=== PATIENT | female | born 1985 | race Caucasian/White ===

== ENCOUNTER 2016-08-23 16:33 | Emergency (ER) | payer MEDICAID ==
[~2016-08-23] VITALS: Ht 162.6 cm; Wt 85.0 kg
[~2016-08-23 16:33] MED LIST: BACT800T5 PO; CEPH500C3 PO; PROM25TA5 PO
[2016-08-23 16:35] VITALS: BP 124/75; PULSE 82; RESP 16; TEMP 98.4; O2SAT 98
[2016-08-23] MEDS ORDERED: SODIUM CHLOR 0.9% 1000 ML INJ 1,000 ML IV SCH (21:28)
--- NOTE | 2016-08-23 21:29 | PD ---
HPI Chief Complaint: Abdominal Pain Time Seen by Provider: 21:29 Travel History International Travel<30 days: No Contact w/Intl Traveler<30days: No Traveled to known affect area: No History of Present Illness HPI 30 year old female with no significant medical history presents to the ED for evaluation of abdominal cramping, diarrhea, nausea, and vomiting intermittently occurring over the last month. Pt has had this in the past and has not followed up with with GI as advised. She denies hematemesis or hematochezia. No fever or chills. No urinary symptoms. No chance of . No vaginal discharge or bleeding. No other symptoms to report. PFSH Past Medical History Medical History: Denies Significant Hx ?: Not LMP: 07/2016 Social History Alcohol Use: No Tobacco Use: No Substance Use: No Allergies-Medications (Allergen,Severity, Reaction): Coded Allergies: Seafood (Verified Allergy, Severe, Anaphylaxis, 08/23/16) Reported Meds & Prescriptions Reported Meds & Active Scripts Active Zofran Odt (Ondansetron Odt) 4 Mg Tab 4 Mg SL Q6HR PRN Omeprazole 40 Mg Cap 40 Mg PO DAILY Phenergan 25 mg (Promethazine HCl) 25 Mg Tab 25 Mg PO Q6H PRN Bactrim DS (Sulfamethoxazole-Trimethoprim DS) 1 Tab Tab 1 Tab PO BID 10 Days Keflex (Cephalexin Monohydrate) 500 Mg Cap 500 Mg PO Q6HR 10 Days Review of Systems Except as stated in HPI: all other systems reviewed are Neg Physical Exam Narrative GENERAL: Well-nourished female patient, ambulatory no distress SKIN: Warm and dry. HEAD: Atraumatic. Normocephalic. EYES: Pupils equal and round. No scleral icterus. No injection or drainage. ENT: No nasal bleeding or discharge. Mucous membranes pink and moist. NECK: Trachea midline. No JVD. CARDIOVASCULAR: Regular rate and rhythm. No murmur appreciated. RESPIRATORY: No accessory muscle use. Clear to auscultation. Breath sounds equal bilaterally. GASTROINTESTINAL: Abdomen soft, non-tender, nondistended. Hepatic and splenic margins not palpable. MUSCULOSKELETAL: No obvious deformities. No clubbing. No cyanosis. No edema. NEUROLOGICAL: Awake and alert. No obvious cranial nerve deficits. Motor grossly within normal limits. Normal speech. PSYCHIATRIC: Appropriate mood and affect; insight and judgment normal. Data Data Last Documented VS Vital Signs Date Time Temp Pulse Resp B/P Pulse Ox O2 Delivery O2 Flow Rate FiO2 08/23/16 21:40 18 100 Room Air 08/23/16 21:33 71 106/62 08/23/16 16:35 98.4 Orders Complete Blood Count With Diff (08/23/16 21:28) Comprehensive Metabolic Panel (08/23/16 21:28) Lipase (08/23/16 21:28) Urinalysis - C+S If Indicated (08/23/16 21:28) Iv Access Insert/Monitor (08/23/16 21:28) Ecg Monitoring (08/23/16 21:28) Oximetry (08/23/16 21:28) Ondansetron Inj (Zofran Inj) (08/23/16 21:30) Pantoprazole Inj (Protonix Inj) (08/23/16 21:30) Sodium Chlor 0.9% 1000 Ml Inj (Ns 1000 M (08/23/16 21:28) Sodium Chloride 0.9% Flush (Ns Flush) (08/23/16 21:30) Ed Urine Pregnancytest Poc (08/23/16 21:28) Potassium Chloride (Kcl) (08/23/16 23:15) Labs Laboratory Tests Test 08/23/16 08/23/16 21:45 22:01 Urine Color YELLOW Urine Turbidity CLEAR Urine pH 6.5 Urine Specific [place] 1.025 Urine Protein TRACE mg/dL Urine Glucose (UA) NEG mg/dL Urine Ketones NEG mg/dL Urine Occult Blood NEG Urine Nitrite NEG Urine Bilirubin NEG Urine Urobilinogen LESS THAN 2.0 MG/DL Urine Leukocyte Esterase NEG Urine RBC LESS THAN 1 /hpf Urine WBC 2 /hpf Urine Squamous Epithelial 2 /hpf Cells Urine Bacteria RARE /hpf Urine Hyaline Casts 2 /lpf Urine Mucus FEW /lpf Microscopic Urinalysis Comment CULT NOT INDICATED White Blood Count 12.3 TH/MM3 Red Blood Count 4.68 MIL/MM3 Hemoglobin 13.0 GM/DL Hematocrit 38.8 % Mean Corpuscular Volume 82.9 FL Mean Corpuscular Hemoglobin 27.7 PG Mean Corpuscular Hemoglobin 33.4 % Concent Red Cell Distribution Width 12.7 % Platelet Count 273 TH/MM3 Mean Platelet Volume 9.4 FL Neutrophils (%) (Auto) 65.3 % Lymphocytes (%) (Auto) 25.9 % Monocytes (%) (Auto) 6.9 % Eosinophils (%) (Auto) 1.3 % Basophils (%) (Auto) 0.6 % Neutrophils # (Auto) 8.0 TH/MM3 Lymphocytes # (Auto) 3.2 TH/MM3 Monocytes # (Auto) 0.9 TH/MM3 Eosinophils # (Auto) 0.2 TH/MM3 Basophils # (Auto) 0.1 TH/MM3 CBC Comment DIFF FINAL Differential Comment Sodium Level 138 MEQ/L Potassium Level 3.3 MEQ/L Chloride Level 104 MEQ/L Carbon Dioxide Level 26.1 MEQ/L Anion Gap 8 MEQ/L Blood Urea Nitrogen 11 MG/DL Creatinine 0.76 MG/DL Estimat Glomerular Filtration 90 ML/MIN Rate Random Glucose 83 MG/DL Calcium Level 9.0 MG/DL Total Bilirubin 0.2 MG/DL Aspartate Amino Transf 16 U/L (AST/SGOT) Alanine Aminotransferase 28 U/L (ALT/SGPT) Alkaline Phosphatase 105 U/L Total Protein 8.5 GM/DL Albumin 4.2 GM/DL Lipase 130 U/L [facility] Medical Decision Making Medical Screen Exam Complete: Yes Emergency Medical Condition: Yes Medical Record Reviewed: Yes Differential Diagnosis Gastritis versus gastroenteritis versus IBD versus colitis Narrative Course 30 year-old female presents to emergency department for evaluation. She appears without distress. Abdominal exam is benign. CBC is without acute concern. BMP is with mild hypokalemia 3.3. This is repleted in the emergency department. Patient is given IV fluids and Zofran. She is encouraged follow- up with gastroenterology and primary care. She agrees to return immediately with any acute worsening symptoms. 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 Primary Care Physician Patient Instructions: Diet for Stomach Ulcers and Gastritis (ED), General Instructions Departure Forms: Tests/Procedures, Work Release Enter return to work date: Aug 25, 2016 Additional Instructions: [place] diet Advance diet as tolerated Follow up with primary care provider Seek gastroenterology evaluation Return to ED with acute worsening of symptoms Med/Other Pt SpecificInfo: Prescription(s) given Scripts Ondansetron Odt (Zofran Odt)4 Mg Tab4 Mg SL Q6HR PRN (Nausea/Vomiting) #10 TAB Ref 0 Prov:Park Bucio 08/23/16 Omeprazole 40 Mg Cap40 Mg PO DAILY #14 CAP Ref 0 Prov:Park Bucio 08/23/16 Disposition: 01 DISCHARGE HOME Condition: Stable Park Bucio Aug 23, 2016 21:29
[2016-08-23] MEDS ORDERED: PANTOPRAZOLE SODIUM 40 MG VIAL IVP ONE (21:30)
[2016-08-23] MEDS ORDERED: SODIUM CHLORIDE 0.9% FLUSH 5 ML FLUSH IVF PRN (21:30)
[2016-08-23] MEDS ORDERED: ONDANSETRON HCL 4 MG/2 ML VIAL IVP ONE (21:30)
[2016-08-23 21:33] VITALS: BP 106/62; PULSE 71; RESP 18; O2SAT 100
[2016-08-23 21:40] VITALS: RESP 18; O2SAT 100
[2016-08-23 22:22] LABS: BASOPHIL # 0.1 TH/MM3 (0-0.2); BASOPHIL % 0.6 % (0.0-2.0); EOSINOPHIL # 0.2 TH/MM3 (0-0.4); EOSINOPHIL % 1.3 % (0.0-4.0); HEMATOCRIT 38.8 % (35.0-46.0); HEMO FLAGS DIFF FINAL; LYMPH % 25.9 % (9.0-44.0); LYMPHOCYTE # 3.2 TH/MM3 (1.0-4.8); MEAN CELL VOLUME 82.9 FL (80.0-100.0); MEAN CORPUSCULAR HEMOGLOBIN 27.7 PG (27.0-34.0); MEAN CORPUSCULAR HGB CONC 33.4 % (32.0-36.0); MONO % 6.9 % (0.0-8.0); NEUT % 65.3 % (16.0-70.0); PLATELET COUNT 273 TH/MM3 (150-450); RED BLOOD COUNT 4.68 MIL/MM3 (4.00-5.30); RED CELL DISTRIBUTION WIDTH 12.7 % (11.6-17.2); WHITE BLOOD COUNT 12.3 TH/MM3 (4.0-11.0)
[2016-08-23 22:24] LABS: BACTERIA, URINE RARE /hpf; BLOOD, URINE NEG (NEG); COMMENT (UR) CULT NOT INDICATED; CULTURE IF INDICATED CULT NOT INDICATED; GLUCOSE,URINE NEG (NEG); HYALINE CAST, URINE 2 /lpf (RARE); KETONE, URINE NEG (NEG); MUCUS URINE FEW /lpf (OCC); NITRITE,URINE NEG (NEG); PH, URINE 6.5 (5.0-8.5); SQUAMOUS EPITHELIAL CELL URINE 2 /hpf (0-5); URINE COLOR YELLOW (YELLW/STRAW)
[2016-08-23 22:46] LABS: ANION GAP 8 MEQ/L (5-15); AST (GOT) 16 U/L (15-37); BICARBONATE 26.1 MEQ/L (21.0-32.0); BLOOD UREA NITROGEN 11 MG/DL (7-18); CHLORIDE 104 MEQ/L (98-107); GLOMERULAR FILTRATION RATE 90 ML/MIN (>89); POTASSIUM 3.3 MEQ/L (3.5-5.1); SODIUM (NA) 138 MEQ/L (136-145)
[2016-08-23 22:49] LABS: ALKALINE PHOSPHATASE 105 U/L (45-117); ALT (GPT) 28 U/L (10-53); TOTAL BILIRUBIN ADULT 0.2 MG/DL (0.2-1.0)
[2016-08-23] MEDS ORDERED: OMEP40CA2 PO (23:05)
[2016-08-23] MEDS ORDERED: ZOFR4TAB3 SL (23:05)
[2016-08-23] MEDS ORDERED: POTASSIUM CHLORIDE 10 MEQ CONTROLLED RELEASE TAB PO ONE (23:15)
[2016-08-24] MEDS ORDERED: NOREPINEPHRINE 4 MG/4 ML AMP ONE (11:18)
== END 2016-08-23 23:18 | disposition home or self-care (01) ==
LOC: NEPC 16:33
DX: K52.9 Noninfective gastroenteritis and colitis, unspecified (principal)
CPT/HCPCS: 80053; 81001; 83690; 84703; 85025; 96361; 96374; 96375; 99284; C9113; J2405; J7030

== ENCOUNTER 2016-08-31 13:16 | Emergency (ER) | payer MEDICAID ==
[~2016-08-31] VITALS: Ht 162.6 cm; Wt 85.0 kg
[~2016-08-31 13:16] MED LIST changes: +OMEP40CA2 PO; +ZOFR4TAB3 SL
[2016-08-31 13:18] VITALS: BP 128/58; PULSE 78; RESP 20; TEMP 97.7; O2SAT 99
--- NOTE | 2016-08-31 13:35 | PD ---
HPI Chief Complaint: Back/ Neck Pain or Injury Time Seen by Provider: 13:35 Travel History International Travel<30 days: No Contact w/Intl Traveler<30days: No Traveled to known affect area: No History of Present Illness HPI 30-year-old male presents to the emergency Department with complaint of left lower back pain 2 days. She says she "threw out her back" from moving concrete the other day. Has had similar back pain in the past. She has tried warm soaks in a bath, icy hot patches, and ibuprofen with some relief. Went to work today and she was in too much pain to work. Denies encopresis, incontinence, saddle anesthesias. Denies IV drug use, cancer. Denies fever, chills, nausea, vomiting. Denies paresthesias, loss of sensation, decreased range of motion, decreased strength to bilateral lower extremities. Pain is aggravated with walking, standing up straight, palpation, and movement. Allergies to seafood. Denies significant past medical history. No other modifying factors or associated signs and symptoms. PFSH Past Medical History Diminished Hearing: No ?: Not : 3 Para: 3 Social History Alcohol Use: Yes (OCC) Tobacco Use: Yes (OCC) Substance Use: No Allergies-Medications (Allergen,Severity, Reaction): Coded Allergies: Seafood (Verified Allergy, Severe, Anaphylaxis, 08/23/16) Reported Meds & Prescriptions Reported Meds & Active Scripts Active Ibuprofen 800 Mg Tab 800 Mg PO Q6HR PRN Robaxin (Methocarbamol) 500 Mg Tab 500 Mg PO QID PRN Zofran Odt (Ondansetron Odt) 4 Mg Tab 4 Mg SL Q6HR PRN Omeprazole 40 Mg Cap 40 Mg PO DAILY Phenergan 25 mg (Promethazine HCl) 25 Mg Tab 25 Mg PO Q6H PRN Bactrim DS (Sulfamethoxazole-Trimethoprim DS) 1 Tab Tab 1 Tab PO BID 10 Days Keflex (Cephalexin Monohydrate) 500 Mg Cap 500 Mg PO Q6HR 10 Days Review of Systems Except as stated in HPI: all other systems reviewed are Neg Physical Exam Narrative GENERAL: Well-nourished, well-developed female patient, in no acute distress SKIN: Warm and dry. HEAD: Atraumatic. Normocephalic. EYES: Pupils equal and round. No scleral icterus. No injection or drainage. ENT: Mucosa pink and moist. Airway patent. NECK: Trachea midline. CARDIOVASCULAR: Regular rate. RESPIRATORY: No accessory muscle use. GASTROINTESTINAL: Abdomen soft, non-tender, nondistended. Positive bowel sounds. No hepato-splenomegaly, or palpable masses. No guarding. MUSCULOSKELETAL: Bilateral lower extremities supple and non-tense with 2+ pedal pulses and sensory intact; with full range of motion and 5/5 strength. 2 + DTRs bilaterally. Active dorsiflexion and extension of bilateral feet. Left straight leg raise is positive for low back pain. Right straight leg raise test negative for low back pain. Ambulatory with a guarded gait in the room. Sitting up in bed at 90. No obvious deformities. No clubbing. No cyanosis. No edema. BACK: No midline point tenderness on palpation of the lumbar, thoracic spine. Tenderness on palpation of left lumbar paraspinal area. No obvious deformities. NEUROLOGICAL: Awake and alert. Oriented 3. No obvious cranial nerve deficits. Motor grossly within normal limits. Normal speech. Moves all extremities. 5/5 strength to all extremities. Sensory intact. PSYCHIATRIC: Appropriate mood and affect; insight and judgment normal. Data Data Last Documented VS Vital Signs Date Time Temp Pulse Resp B/P Pulse Ox O2 Delivery O2 Flow Rate FiO2 08/31/16 13:18 97.7 78 20 128/58 99 Room Air Orders Ketorolac Inj (Toradol Inj) (08/31/16 13:45) Orphenadrine Inj (Norflex Inj) (08/31/16 13:45) MDM Medical Decision Making Medical Screen Exam Complete: Yes Emergency Medical Condition: Yes Medical Record Reviewed: Yes Differential Diagnosis Low back strain, acute low back pain, muscle spasm Narrative Course 30-year-old female physical exam and history of present illness consistent with left-sided low back strain and acute low back pain. Denies encopresis, incontinence, saddle anesthesias. Denies IV drug use, cancer. Denies fever, chills, nausea, vomiting. Patient ambulatory in the room with a guarded gait. No midline Point tenderness on palpation of the lumbar or thoracic spine. Toradol and Norflex administered in the ER. Ibuprofen and Robaxin prescribed for home. Patient verbalizes understanding and agreement with treatment plan. Patient is medically cleared and stable for discharge. Discussed reasons to return to the emergency department. Instructed patient to follow up with primary care provider. Patient agrees with treatment plan. The patients vital signs are stable and the patient is stable for outpatient follow-up and treatment. Patient discharged home, stable and in no acute distress. Diagnosis Primary Impression: Low back strain Qualified Code: S39.012A - Low back strain, initial encounter Additional Impression: Acute low back pain Qualified Code: M54.5 - Acute left-sided low back pain without sciatica Referrals: Primary Care Physician Patient Instructions: Acute Low Back Pain (ED), General Instructions, Low Back Strain (ED) Departure Forms: Tests/Procedures, Work Release Enter return to work date: Sep 03, 2016 Special Instructions: May return to work earlier at patient's discretion Additional Instructions: Tylenol or ibuprofen as directed and as needed for pain Robaxin as prescribed and as needed for muscle spasms Heating pad and/or ice to affected area to reduce pain Avoid aggravating activities; increase activity as tolerated Follow-up with primary care provider Return to emergency department immediately with worsening of symptoms Med/Other Pt SpecificInfo: Prescription(s) given Scripts Ibuprofen 800 Mg [id number] Mg PO Q6HR PRN (PAIN) #30 TAB Ref 0 Prov:Katrin Aguirre 08/31/16 Methocarbamol (Robaxin)500 Mg [id number] Mg PO QID PRN (MUSCLE SPASM) #30 TAB Ref 0 Prov:Katrin Aguirre 08/31/16 Disposition: 01 DISCHARGE HOME Condition: Stable Katrin Aguirre Aug 31, 2016 13:35
[2016-08-31] MEDS ORDERED: ROBA500T PO (13:38)
[2016-08-31] MEDS ORDERED: IBUP800T23 PO (13:38)
[2016-08-31] MEDS ORDERED: ORPHENADRINE INJ 60 MG/2 ML AMP IM ONE (13:45)
[2016-08-31] MEDS ORDERED: KETOROLAC TROMETHAMINE 60 MG/2 ML (IM) VIAL IM ONE (13:45)
== END 2016-08-31 14:04 | disposition home or self-care (01) ==
LOC: NEPB 13:16
DX: S39.012A Strain of muscle, fascia and tendon of lower back, initial encounter (principal); M54.5 Low back pain; Z72.0 Tobacco use; X50.0XXA Overexertion from strenuous movement or load, initial encounter
CPT/HCPCS: 96372; 99283; J1885; J2360

== ENCOUNTER 2016-09-05 18:45 | Emergency (ER) | payer MEDICAID ==
[~2016-09-05] VITALS: Ht 162.6 cm; Wt 86.0 kg
[~2016-09-05 18:45] MED LIST changes: -BACT800T5 PO; -CEPH500C3 PO; +IBUP800T23 PO; -PROM25TA5 PO; +ROBA500T PO
[2016-09-05 18:46] VITALS: BP 124/61; PULSE 80; RESP 16; TEMP 97.5; O2SAT 98
--- NOTE | 2016-09-05 21:19 | PD ---
HPI Chief Complaint: Back/ Neck Pain or Injury Time Seen by Provider: 21:16 Travel History International Travel<30 days: No Contact w/Intl Traveler<30days: No Traveled to known affect area: No History of Present Illness HPI 30-year-old white female presents to emergency Department with complaints of left lower back pain. She states that she had an injury lifting and moving concrete 4 days ago. She states that it seemed to start to improve but she then reinjured her back today lifting her child out of his car seat. She states the pain is mild to moderate. Worse with bending and movement. Some relief from remaining still. No numbness, tingling or weakness. PFSH Past Medical History Narrative Medical Lumbar strain Diminished Hearing: No Tetanus Vaccination: < 5 Years ?: Not : 3 Para: 3 Past Surgical History Surgical History: No Previous Surgery Social History Alcohol Use: Yes (OCC) Tobacco Use: Yes (OCC) Substance Use: No Allergies-Medications (Allergen,Severity, Reaction): Coded Allergies: Seafood (Verified Allergy, Severe, Anaphylaxis, 09/05/16) Reported Meds & Prescriptions Reported Meds & Active Scripts Active Ibuprofen 800 Mg Tab 800 Mg PO Q6HR PRN Robaxin (Methocarbamol) 500 Mg Tab 500 Mg PO QID PRN Review of Systems Except as stated in HPI: all other systems reviewed are Neg Physical Exam Narrative GENERAL: Well-developed, well-nourished in no acute distress. Nontoxic appearing. HEAD: Normocephalic, atraumatic. EYES: Pupils equal round and reactive. Extraocular motions intact. No scleral icterus. No injection or drainage. ENT: TMs clear without erythema. The external auditory canals clear. Nose: clear . Posterior pharynx is pink and moist. No tonsillar edema or exudate. Uvula midline. Airway patent. NECK: Trachea midline.Supple, nontender, moves head freely. No central bony tenderness or spasm. CARDIOVASCULAR: Regular rate and rhythm without murmurs, gallops, or rubs. RESPIRATORY: Clear to auscultation. Breath sounds equal bilaterally. No wheezes , rales, or rhonchi. GASTROINTESTINAL: Abdomen soft, non-tender, nondistended. No hepato-splenomegaly , or palpable masses. No guarding. EXTREMITIES: No clubbing, cyanosis, or edema. No joint tenderness, effusion, or edema noted. BACK: No central bony tenderness to palpation of dorsal lumbar spine. Without deformity or crepitance. No flank tenderness. Patient has left paralumbar tenderness with mild spasm. Sits up in bed at 90. No saddle anesthesia. Data Data Last Documented VS Vital Signs Date Time Temp Pulse Resp B/P Pulse Ox O2 Delivery O2 Flow Rate FiO2 09/05/16 18:46 97.5 80 16 124/61 98 Room Air MDM Medical Decision Making Medical Screen Exam Complete: Yes Emergency Medical Condition: Yes Medical Record Reviewed: Yes Differential Diagnosis MDM: High Differential diagnoses: Fracture, sprain, strain, HNP, nerve or vascular injury , epidural abscess, pilonidal cyst Narrative Course pATIENT GIVEN tORADOL 60 AND nORFLEX 60 MG im. tHIS ACUTE EXACERBATION OF BACK STRAIN Diagnosis Primary Impression: acute exacerbation of back strain Patient Instructions: General Instructions Departure Forms: Tests/Procedures, Work Release Special Instructions: No work 3 days. Additional Instructions: Rest. Ice for the next 3 days followed by heat . Continue home medications.. Follow-up with a primary care doctor in one week. Return to the ER for emergencies. Med/Other Pt SpecificInfo: No Change to Meds Disposition: 01 DISCHARGE HOME Condition: Stable Ameya Castillo Sep 05, 2016 21:19
[2016-09-05] MEDS ORDERED: KETOROLAC TROMETHAMINE 60 MG/2 ML (IM) VIAL IM ONE (21:30)
[2016-09-05] MEDS ORDERED: ORPHENADRINE INJ 60 MG/2 ML AMP IM ONE (21:30)
== END 2016-09-05 22:02 | disposition home or self-care (01) ==
LOC: NEPB 18:45
DX: S39.012A Strain of muscle, fascia and tendon of lower back, initial encounter (principal); X50.0XXA Overexertion from strenuous movement or load, initial encounter; Y93.F2 Activity, caregiving, lifting; Y92.9 Unspecified place or not applicable; Z72.0 Tobacco use
CPT/HCPCS: 96372; 99282; J1885; J2360

== ENCOUNTER 2016-10-15 12:14 | Emergency (ER) | payer MEDICAID ==
[~2016-10-15] VITALS: Ht 162.6 cm; Wt 86.4 kg
[~2016-10-15 12:14] MED LIST changes: -OMEP40CA2 PO; -ZOFR4TAB3 SL
[2016-10-15 12:16] VITALS: BP 122/68; PULSE 88; RESP 16; TEMP 98.8; O2SAT 99
--- NOTE | 2016-10-15 12:26 | PD ---
Physical Exam Time Seen by Provider: 12:25 Narrative 30 y/o female here with intermittent nausea/vomiting, abdominal pain for 2 months. Has an appointment to establish care with director of product marketing in November. VSS. Seen at triage desk. Awaiting bed placement. Data Data Last Documented VS Vital Signs Date Time Temp Pulse Resp B/P Pulse Ox O2 Delivery O2 Flow Rate FiO2 10/15/16 12:16 98.8 88 16 122/68 99 Room Air [facility] Medical Record Reviewed: Yes Supervised Visit with MARGA: No Floyd Nunez October 15, 2016 12:26
[2016-10-15] MEDS ORDERED: SODIUM CHLOR 0.9% 1000 ML INJ 1,000 ML IV ONE (12:41)
[2016-10-15] MEDS ORDERED: ONDANSETRON HCL 4 MG/2 ML VIAL IVP ONE (12:45)
[2016-10-15] MEDS ORDERED: SODIUM CHLORIDE 0.9% FLUSH 10 ML FLUSH IVF PRN (12:45)
--- NOTE | 2016-10-15 12:46 | PD ---
HPI Chief Complaint: Abdominal Pain Time Seen by Provider: 12:43 Travel History International Travel<30 days: No Contact w/Intl Traveler<30days: No Traveled to known affect area: No History of Present Illness HPI Patient is a 30-year-old female presenting to emergency for evaluation of abdominal pain, diarrhea, nausea with vomiting. Patient's symptoms started at 0100 Saturday morning. She states that initially she was constipated she attempted to have a bowel movement, she finally passed hard stools and at that time she became nauseated and vomited. After that initial hard bowel movement she had several episodes of loose stools. She has not had any vomiting or diarrhea today. She does report lower abdominal cramping and nausea currently. Patient states that she does go through cycles of constipation and diarrhea. She seems to vomit at the onset of the symptoms secondary to attempting to have a bowel movement. This has been ongoing for approximately 2 months, she has an appointment with the GI specialist on November 20, 2016. Patient denies any vaginal discharge, she currently has her menstrual cycle. PFSH Past Medical History Medical History: Denies Significant Hx Diminished Hearing: No ?: Not LMP: 10/15/2016 : 3 Para: 3 Past Surgical History Surgical History: No Previous Surgery Social History Alcohol Use: Yes (OCC) Tobacco Use: Yes (OCC) Substance Use: No Allergies-Medications (Allergen,Severity, Reaction): Coded Allergies: Seafood (Verified Allergy, Severe, Anaphylaxis, 10/15/16) Reported Meds & Prescriptions Reported Meds & Active Scripts Active Bentyl (Dicyclomine HCl) 20 Mg Tab 20 Mg PO TID PRN 7 Days Zofran Odt (Ondansetron Odt) 4 Mg Tab 4 Mg SL Q4-6H PRN 3 Days Ibuprofen 800 Mg Tab 800 Mg PO Q6HR PRN Robaxin (Methocarbamol) 500 Mg Tab 500 Mg PO QID PRN Review of Systems Except as stated in HPI: all other systems reviewed are Neg General / Constitutional: No: Fever, Chills HENT: No: Headaches, Lightheadedness Cardiovascular: No: Chest Pain or Discomfort Respiratory: No: Shortness of Breath Gastrointestinal: Positive: Nausea, Vomiting, Diarrhea, Abdominal Pain, Constipation, Changes in Bowel Habits Genitourinary: No: Dysuria, Flank Pain Musculoskeletal: No: Myalgias Neurologic: No: Dizziness Physical Exam Narrative GENERAL: Overweight, well-developed, alert female. Resting comfortably in no acute distress. SKIN: Warm and dry. HEAD: Atraumatic. Normocephalic. EYES: Pupils equal and round. No scleral icterus. No injection or drainage. ENT: No nasal bleeding or discharge. Mucous membranes pink and moist. NECK: Trachea midline. No JVD. CARDIOVASCULAR: Regular rate and rhythm. RESPIRATORY: No accessory muscle use. Clear to auscultation. Breath sounds equal bilaterally. GASTROINTESTINAL: Abdomen soft, non-tender, nondistended. Hepatic and splenic margins not palpable. Positive bowel sounds, no rebound, no guarding. MUSCULOSKELETAL: Extremities without clubbing, cyanosis, or edema. No obvious deformities. NEUROLOGICAL: Awake and alert. No obvious cranial nerve deficits. Motor grossly within normal limits. Five out of 5 muscle strength in the arms and legs. Normal speech. PSYCHIATRIC: Appropriate mood and affect; insight and judgment normal. Data Data Last Documented VS Vital Signs Date Time Temp Pulse Resp B/P Pulse Ox O2 Delivery O2 Flow Rate FiO2 10/15/16 15:29 67 16 108/51 96 10/15/16 12:16 98.8 Room Air Orders Complete Blood Count With Diff (10/15/16 12:41) Comprehensive Metabolic Panel (10/15/16 12:41) Urinalysis - C+S If Indicated (10/15/16 12:41) Lipase (10/15/16 12:41) Iv Access Insert/Monitor (10/15/16 12:41) Ondansetron Inj (Zofran Inj) (10/15/16 12:45) Sodium Chlor 0.9% 1000 Ml Inj (Ns 1000 M (10/15/16 12:41) Sodium Chloride 0.9% Flush (Ns Flush) (10/15/16 12:45) Abdomen, Kub Only (10/15/16 12:41) Dicyclomine Inj (Bentyl Inj) (10/15/16 13:00) Urine Culture (10/15/16 13:20) Labs Laboratory Tests Test 10/15/16 10/15/16 13:00 13:20 White Blood Count 6.7 TH/MM3 Red Blood Count 4.39 MIL/MM3 Hemoglobin 12.5 GM/DL Hematocrit 36.1 % Mean Corpuscular Volume 82.4 FL Mean Corpuscular Hemoglobin 28.4 PG Mean Corpuscular Hemoglobin 34.5 % Concent Red Cell Distribution Width 12.8 % Platelet Count 245 TH/MM3 Mean Platelet Volume 9.5 FL Neutrophils (%) (Auto) 65.6 % Lymphocytes (%) (Auto) 25.4 % Monocytes (%) (Auto) 7.3 % Eosinophils (%) (Auto) 1.1 % Basophils (%) (Auto) 0.6 % Neutrophils # (Auto) 4.4 TH/MM3 Lymphocytes # (Auto) 1.7 TH/MM3 Monocytes # (Auto) 0.5 TH/MM3 Eosinophils # (Auto) 0.1 TH/MM3 Basophils # (Auto) 0.0 TH/MM3 CBC Comment DIFF FINAL Differential Comment Sodium Level 140 MEQ/L Potassium Level 4.4 MEQ/L Chloride Level 109 MEQ/L Carbon Dioxide Level 25.4 MEQ/L Anion Gap 6 MEQ/L Blood Urea Nitrogen 9 MG/DL Creatinine 0.70 MG/DL Estimat Glomerular Filtration 99 ML/MIN Rate Random Glucose 113 MG/DL Calcium Level 9.2 MG/DL Total Bilirubin 0.4 MG/DL Aspartate Amino Transf 23 U/L (AST/SGOT) Alanine Aminotransferase 27 U/L (ALT/SGPT) Alkaline Phosphatase 87 U/L Total Protein 7.5 GM/DL Albumin 3.7 GM/DL Lipase 113 U/L Urine Color YELLOW Urine Turbidity HAZY Urine pH 6.5 Urine Specific [place] 1.021 Urine Protein TRACE mg/dL Urine Glucose (UA) NEG mg/dL Urine Ketones NEG mg/dL Urine Occult Blood LARGE Urine Nitrite NEG Urine Bilirubin NEG Urine Urobilinogen LESS THAN 2.0 MG/DL Urine Leukocyte Esterase NEG Urine RBC /hpf Urine WBC 1 /hpf Urine Squamous Epithelial 7 /hpf Cells Urine Bacteria MOD /hpf Urine Mucus FEW /lpf Microscopic Urinalysis Comment CULTURE INDICATED MDM Medical Decision Making Medical Screen Exam Complete: Yes Emergency Medical Condition: Yes Medical Record Reviewed: Yes Interpretation(s) Laboratory Tests Test 10/15/16 10/15/16 13:00 13:20 White Blood Count 6.7 TH/MM3 Red Blood Count 4.39 MIL/MM3 Hemoglobin 12.5 GM/DL Hematocrit 36.1 % Mean Corpuscular Volume 82.4 FL Mean Corpuscular Hemoglobin 28.4 PG Mean Corpuscular Hemoglobin 34.5 % Concent Red Cell Distribution Width 12.8 % Platelet Count 245 TH/MM3 Mean Platelet Volume 9.5 FL Neutrophils (%) (Auto) 65.6 % Lymphocytes (%) (Auto) 25.4 % Monocytes (%) (Auto) 7.3 % Eosinophils (%) (Auto) 1.1 % Basophils (%) (Auto) 0.6 % Neutrophils # (Auto) 4.4 TH/MM3 Lymphocytes # (Auto) 1.7 TH/MM3 Monocytes # (Auto) 0.5 TH/MM3 Eosinophils # (Auto) 0.1 TH/MM3 Basophils # (Auto) 0.0 TH/MM3 CBC Comment DIFF FINAL Differential Comment Sodium Level 140 MEQ/L Potassium Level 4.4 MEQ/L Chloride Level 109 MEQ/L Carbon Dioxide Level 25.4 MEQ/L Anion Gap 6 MEQ/L Blood Urea Nitrogen 9 MG/DL Creatinine 0.70 MG/DL Estimat Glomerular Filtration 99 ML/MIN Rate Random Glucose 113 MG/DL Calcium Level 9.2 MG/DL Total Bilirubin 0.4 MG/DL Aspartate Amino Transf 23 U/L (AST/SGOT) Alanine Aminotransferase 27 U/L (ALT/SGPT) Alkaline Phosphatase 87 U/L Total Protein 7.5 GM/DL Albumin 3.7 GM/DL Lipase 113 U/L Urine Color YELLOW Urine Turbidity HAZY Urine pH 6.5 Urine Specific [place] 1.021 Urine Protein TRACE mg/dL Urine Glucose (UA) NEG mg/dL Urine Ketones NEG mg/dL Urine Occult Blood LARGE Urine Nitrite NEG Urine Bilirubin NEG Urine Urobilinogen LESS THAN 2.0 MG/DL Urine Leukocyte Esterase NEG Urine RBC /hpf Urine WBC 1 /hpf Urine Squamous Epithelial 7 /hpf Cells Urine Bacteria MOD /hpf Urine Mucus FEW /lpf Microscopic Urinalysis Comment CULTURE INDICATED Vital Signs Date Time Temp Pulse Resp B/P Pulse Ox O2 Delivery O2 Flow Rate FiO2 10/15/16 12:16 98.8 88 16 122/68 99 Room Air Differential Diagnosis Gastroenteritis versus gastritis versus obstruction versus pancreatitis versus cholecystitis versus irritable bowel syndrome versus other Narrative Course Patient's a 30-year-old female presenting to the emergency department for evaluation of abdominal cramping, nausea and vomiting, diarrhea. Patient's symptoms appear to be cyclical in nature, she last presented in August with the same complaints. Her vital signs are stable, will check routine labs to rule out electrolyte abnormality. Patient be given IV fluids, Zofran, Bentyl and now. We'll obtain KUB. Patient's resting comfortably in no acute distress. CBC, CMP reviewed and are unremarkable Urinalysis shows occult blood, patient does have her menstrual cycle currently. Reflex culture pending, will defer treatment until culture results . Patient has no urinary complaints at this time. KUB is unremarkable. Patient is encouraged to keep her appointment with her GI specialist, she was given written information regarding the [facility]. She is encouraged to emergency department for any new or worsening symptoms. She was encouraged to keep a food diary, she was advised to keep a bland low residue diet until symptoms improve and then increase as tolerated. Discussed the patient with a bland low residue diet consisted of. Patient verbalized understanding of discharge instructions. Patient is stable for discharge. 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
[2016-10-15] MEDS ORDERED: DICYCLOMINE HCL 20 MG/2 ML VIAL IM ONE (13:00)
[2016-10-15 13:23] LABS: AUTOMATED NEUTROPHIL # 4.4 TH/MM3 (1.8-7.7); BASOPHIL % 0.6 % (0.0-2.0); EOSINOPHIL # 0.1 TH/MM3 (0-0.4); EOSINOPHIL % 1.1 % (0.0-4.0); HEMATOCRIT 36.1 % (35.0-46.0); HEMO FLAGS DIFF FINAL; LYMPH % 25.4 % (9.0-44.0); LYMPHOCYTE # 1.7 TH/MM3 (1.0-4.8); MEAN CELL VOLUME 82.4 FL (80.0-100.0); MEAN CORPUSCULAR HEMOGLOBIN 28.4 PG (27.0-34.0); MEAN CORPUSCULAR HGB CONC 34.5 % (32.0-36.0); MONO % 7.3 % (0.0-8.0); NEUT % 65.6 % (16.0-70.0); PLATELET COUNT 245 TH/MM3 (150-450); RED BLOOD COUNT 4.39 MIL/MM3 (4.00-5.30); RED CELL DISTRIBUTION WIDTH 12.8 % (11.6-17.2); WHITE BLOOD COUNT 6.7 TH/MM3 (4.0-11.0)
[2016-10-15 13:41] LABS: ALKALINE PHOSPHATASE 87 U/L (45-117); TOTAL BILIRUBIN ADULT 0.4 MG/DL (0.2-1.0)
[2016-10-15 13:45] LABS: ALT (GPT) 27 U/L (10-53); ANION GAP 6 MEQ/L (5-15); AST (GOT) 23 U/L (15-37); BICARBONATE 25.4 MEQ/L (21.0-32.0); BLOOD UREA NITROGEN 9 MG/DL (7-18); CHLORIDE 109 MEQ/L (98-107); GLOMERULAR FILTRATION RATE 99 ML/MIN (>89); POTASSIUM 4.4 MEQ/L (3.5-5.1); SODIUM (NA) 140 MEQ/L (136-145)
[2016-10-15 14:06] LABS: BACTERIA, URINE MOD /hpf; BLOOD, URINE LARGE (NEG); COMMENT (UR) CULTURE INDICATED; CULTURE IF INDICATED CULTURE INDICATED; GLUCOSE,URINE NEG (NEG); KETONE, URINE NEG (NEG); MUCUS URINE FEW /lpf (OCC); NITRITE,URINE NEG (NEG); PH, URINE 6.5 (5.0-8.5); SQUAMOUS EPITHELIAL CELL URINE 7 /hpf (0-5); URINE COLOR YELLOW (YELLW/STRAW)
--- NOTE | 2016-10-15 14:12 | RADRPT ---
EXAM DATE/TIME: 10/15/2016 13:35 [facility] COMPARISON: No previous studies available for comparison. INDICATIONS : Diffuse abdominal pain, vomiting and diarrhea off and on for 2 months. MEDICAL HISTORY : None. SURGICAL HISTORY : None. ENCOUNTER: Initial ACUITY: 2 months PAIN SCORE: 4/10 LOCATION: Bilateral abdomen FINDINGS: Supine view of the abdomen was performed. The abdominal bowel gas pattern is normal. No abnormal ma sses, calcifications, or organomegaly is seen. The osseous structures are unremarkable.CONCLUSION: Normal examination. Rolando Mckay MD on October 15, 2016 at 14:09 Board Certified Radiologist. This report was verified electronically.
[2016-10-15] MEDS ORDERED: ZOFR4TAB3 SL (14:20)
[2016-10-15] MEDS ORDERED: BENT20TA PO (14:20)
[2016-10-15 15:29] VITALS: BP 108/51
== END 2016-10-15 15:42 | disposition home or self-care (01) ==
LOC: NEPD 12:14
DX: R10.30 Lower abdominal pain, unspecified (principal); R11.0 Nausea; R19.7 Diarrhea, unspecified; K59.00 Constipation, unspecified; Z72.0 Tobacco use
CPT/HCPCS: 74000; 80053; 81001; 83690; 85025; 87086; 96361; 96372; 96374; 99284; J0500; J2405; J7030

== ENCOUNTER 2016-11-29 10:34 | Emergency (ER) | payer MEDICAID ==
[~2016-11-29] VITALS: Ht 162.6 cm; Wt 90.0 kg
[~2016-11-29 10:34] MED LIST changes: +BENT20TA PO; +ZOFR4TAB3 SL
[2016-11-29 10:37] VITALS: BP 110/63; PULSE 105; RESP 18; TEMP 98.4; O2SAT 98
--- NOTE | 2016-11-29 11:01 | PD ---
Physical Exam Time Seen by Provider: 10:59 Narrative 31yo F c/o migraine REDD, fever, hot/cold sweats, ear pain, sore throat, and cough since Saturday night. Patient seen in triage. VS reviewed. Awaiting bed placement. Data Data Last Documented VS Vital Signs Date Time Temp Pulse Resp B/P Pulse Ox O2 Delivery O2 Flow Rate FiO2 11/29/16 10:37 98.4 105 18 110/63 98 Room Air MDM Supervised Visit with MARGA: Katrin Tompkins Nov 29, 2016 11:01
--- NOTE | 2016-11-29 11:24 | PD ---
HPI . cold sxs, sore throat, cold/hot sweats, body aches and ear pain x 3 days Chief Complaint: Cold / Flu Symptoms Time Seen by Provider: 11:20 Travel History International Travel<30 days: No Contact w/Intl Traveler<30days: No Traveled to known affect area: No History of Present Illness HPI 31-year-old female with no significant past medical history here with complaints of cold symptoms, sore throat, cold and hot sweats, body aches and ear pain for the past 3 days. Patient tells me that her daughter was diagnosed with influenza. She had a temperature of 103 last night around 6 PM. She says since then she has not had any further fevers, but continues to have all of the above stated symptoms as well as a headache located in the frontal part of her head. She tells me she has had migraines in the past, but this headache seems more pressure-like. She also reports some ear fullness and facial pressure. She denies daily medications. She has not tried anything [id number] for relief. PFSH Past Medical History Diminished Hearing: No ?: Unknown : 4 Para: 3 Miscarriage: 1 Social History Alcohol Use: No Tobacco Use: No Substance Use: No Allergies-Medications (Allergen,Severity, Reaction): Coded Allergies: Seafood (Verified Allergy, Severe, Anaphylaxis, 10/15/16) Reported Meds & Prescriptions Reported Meds & Active Scripts Active Flonase Nasal [place] (Fluticasone Nasal [place]) 50 Mcg/Act [place] 50 Mcg EACH NARE BID Augmentin (Amoxicillin-Clavulanate) 875-125 Mg Tab 1 Tab PO BID 10 Days Bentyl (Dicyclomine HCl) 20 Mg Tab 20 Mg PO TID PRN 7 Days Zofran Odt (Ondansetron Odt) 4 Mg Tab 4 Mg SL Q4-6H PRN 3 Days Ibuprofen 800 Mg Tab 800 Mg PO Q6HR PRN Robaxin (Methocarbamol) 500 Mg Tab 500 Mg PO QID PRN Review of Systems General / Constitutional: Positive: Fever, Chills Eyes: No: Visual changes HENT: Positive: Headaches, Sore Throat, Congestion, Earache Cardiovascular: No: Chest Pain or Discomfort Respiratory: No: Shortness of Breath Gastrointestinal: No: Abdominal Pain Genitourinary: No: Dysuria Musculoskeletal: No: Pain Skin: No Rash Neurologic: No: Weakness Psychiatric: No: Depression Endocrine: No: Polydipsia Hematologic/Lymphatic: No: Easy Bruising Physical Exam Narrative GENERAL: AAO x 3, no acute distress, Well-nourished, well-developed patient. SKIN: Warm and dry. No visible rashes or bruising. HEAD: Normocephalic and atraumatic. EYES: No scleral icterus. No injection or drainage. EOM intact, PERRLA, ENT: No nasal drainage noted. Mucous membranes pink. Airway patent. no significant posterior pharynx erythema, edema or exudates. TMs bilateral effusion with clear fluid, positive frontal sinus tenderness on palpation. NECK: Supple, trachea midline. No JVD. No significant lymphadenopathy. CARDIOVASCULAR: Regular rate and rhythm without murmurs, gallops, or rubs. RESPIRATORY: Breath sounds equal bilaterally. No accessory muscle use. No rhonchi or rales. no wheezing. GASTROINTESTINAL: Abdomen soft, non-tender, nondistended. EXTREMITIES: No cyanosis or edema. BACK: Nontender without obvious deformity. No CVA tenderness. 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 Data Data Last Documented VS Vital Signs Date Time Temp Pulse Resp B/P Pulse Ox O2 Delivery O2 Flow Rate FiO2 11/29/16 10:37 98.4 105 18 110/63 98 Room Air Orders Group A Rapid Strep Screen (11/29/16 11:23) Influenzae A/B Antigen (11/29/16 11:23) Strep Culture (Group A) (11/29/16 11:30) [facility] Medical Decision Making Medical Screen Exam Complete: Yes Emergency Medical Condition: Yes Medical Record Reviewed: Yes Differential Diagnosis Sinusitis, pharyngitis, influenza, less likely pneumonia Narrative Course 31 year old female here with cold and flulike symptoms. I have ordered a rapid strep and influenza screen.I do not suspect they will be positive. Lungs are clear. She appears to also have an acute sinusitis, which is likely contributing to her headache. I will treat her with a course of antibiotics and include coverage for strep. Date/Time Procedure Status Source Growth 11/29/16 11:30 Group A Streptococcus Screen (BI) - Final Complete Throat 11/29/16 11:30 Influenza Types A,B Antigen (BI) - Final Complete Nasal Washing NEGATIVE FOR FLU A AND B ANTIGEN.... 11/29/16 11:30 Group A Streptococcus Screen Received Throat Pending Recommend rest and hydration. Patient verbalized understanding of instructions, questions were answered, and thanked me for their care. I advised them if their condition worsens, please return to the nearest emergency room for further care. Diagnosis Primary Impression: Acute sinusitis Qualified Code: J01.10 - Acute non-recurrent frontal sinusitis Patient Instructions: General Instructions Departure Forms: Tests/Procedures, Work Release Enter return to work date: Dec 01, 2016 Additional Instructions: Please return to emergency department if your symptoms return or worsen. Follow up with your primary care provider. Take medications as prescribed. You can use over the counter Tylenol or Motrin as needed for pain and fever. Med/Other Pt SpecificInfo: Prescription(s) given Scripts Fluticasone Nasal [place] (Flonase Nasal [place])50 Mcg/Act Spray50 Mcg EACH NARE BID #1 BOTTLE Ref 0 Prov:Rosa Elena Hu MD 11/29/16 Amoxicillin-Clavulanate (Augmentin)875-125 Mg Tab1 Tab PO BID 10 Days Prov:Rosa Elena Hu MD 11/29/16 Disposition: 01 DISCHARGE HOME Condition: Stable Liz Nevarez Nov 29, 2016 11:23
[2016-11-29] MEDS ORDERED: FLUT1SPR5 EACH NARE (12:22)
[2016-11-29] MEDS ORDERED: AUGM875T3 PO (12:22)
== END 2016-11-29 12:42 | disposition home or self-care (01) ==
LOC: NEPD 10:34
DX: J01.10 Acute frontal sinusitis, unspecified (principal)
CPT/HCPCS: 87081; 87804; 87880; 99284